=== PATIENT | female | born 1995 ===

== ENCOUNTER 2019-10-27 18:38 | Inpatient (IN) ==
[2019-10-27] MEDS ORDERED: BUTORPHANOL 2 MG/ML VIAL IV PRN (19:22)
[2019-10-27] MEDS ORDERED: ONDANSETRON 4 MG/2 ML VIAL IV PRN (19:22)
[2019-10-27] MEDS ORDERED: MEPERIDINE 50 MG/1 ML VIAL IV PRN (19:22)
[2019-10-27 19:40] LABS: Basophils % 0.2 % (0.0-0.8); Eosinophils % 0.2 % (0.00-10.9); Hematocrit 36.4 VOL% (35.7-47.0); Hemoglobin 12.1 GM/DL (12.0-16.0); Immature Granulocytes % 0.6 %; Immature Granulocytes Absolute 0.05 #; Lymphocytes % 23.9 % (21.3-54.2); Mean Corpuscular HGB Conc 33.2 GM/DL (32-36); Mean Corpuscular Volume 89.9 FL (87-102); Mean Platelet Volume 9.8 FL (9.6-12.0); Neutrophils % 67.1 % (38.7-73.9); Platelet Count 286 T/CUMM (130-400); Red Blood Count 4.05 MC/CUMM (3.8-5.5); Red Cell Distribution Width 15.2 % (9.3-17.3); White Blood Count 8.5 T/CUMM (4-12)
[2019-10-27 19:56] LABS: Bilirubin,Direct < 0.100 MG/DL (0.0-0.20); Uric Acid 5.1 MG/DL (2.6-6.0)
[2019-10-27 19:59] LABS: INR 0.9; PT Patient Result 9.3 SECS (9.8-11.9); Partial Thromboplastin Time 26.8 SECS (23.9-33.8)
[2019-10-27] MEDS ORDERED: AMPICILLIN INJ 2,000 MG in SODIUM CHLORIDE 0.9% 100 ML IV ONE (20:12)
[2019-10-27 20:14] LABS: Alanine Aminotransferase 16 U/L (13-56); Albumin 2.3 G/DL (3.4-5.0); Alkaline Phosphatase 148 U/L (45-117); Aspartate Amino Transferase 19 U/L (0-37); Bilirubin,Total < 0.39 MG/DL (0.2-1.0); Blood Urea Nitrogen 15 MG/DL (7-18); Calcium 8.7 MG/DL (8.5-10.1); Estimated Glom Filtration Rate 103 ML/MIN; Glucose 105 MG/DL (74-106); Osmolality,Calculated 275.7 MOS/KG (273-304); Total Protein 7.1 G/DL (6.4-8.3)
[2019-10-28] MEDS: AMPICILLIN INJ 1,000 MG in SODIUM CHLORIDE 0.9% 100 ML IV SCH ×4 (01:04→15:19)
[2019-10-28] MEDS: LACTATED RINGERS 1,000 ML IV SCH ×4 (02:29→20:34)
[2019-10-28] MEDS ORDERED: OXYTOCIN/LR 20 UNIT/1,000 ML BAG IV SCH (02:30)
[2019-10-28] MEDS ORDERED: CITRIC ACID/SODIUM CITRATE 30 ML UDCUP PO ONE (09:04)
[2019-10-28] MEDS ORDERED: FAMOTIDINE 20 MG/2 ML VIAL IV ONE (09:04)
[2019-10-28] MEDS ORDERED: ePHEDrine 50 MG/ML AMP IV PRN (09:04)
[2019-10-28] MEDS ORDERED: hydrOXYzine HCL 25 MG/1 ML VIAL IM PRN (09:04)
[2019-10-28] MEDS ORDERED: PROMETHAZINE 25 MG/1 ML VIAL IM PRN (09:04)
[2019-10-28] MEDS ORDERED: diphenhydrAMINE 50 MG/1 ML VIAL IV PRN (09:04)
[2019-10-28] MEDS ORDERED: NALOXONE 0.4 MG/ML VIAL IV PRN (09:04)
[2019-10-28] MEDS ORDERED: fentaNYL 2 MCG/ROPIV 0.2% EPID 100 ML EPIDURAL SCH (09:30)
[2019-10-28 12:52] LABS: Apearance,Urine CLEAR (Clear); Bilirubin,Urine Negative (Negative); Blood, Urine Negative (Negative); Glucose,Urine (UA) Negative (Negative); Ketones,Urine Negative (Negative); Mucus,Urine Occasional /LPF (Occasional); Nitrite,Urine Negative (Negative); Protein,Urine 30 MG/DL; RBC,Urine <1 /HPF (0-4); Squamous Epithelial Cell,Urine Occasional /HPF (0-10); Transitional Epi Cells,Urine Occasional /HPF (<1); Urine Specific Gravity 1.023 (1.001-1.035); Urine Urobilinogen < 2.0 EU/DL (0.2-1.0); WBC,Urine 2 /HPF (0-6)
[2019-10-28 13:30] LABS: Urine Color Yellow (Yellow)
[2019-10-28] MEDS ORDERED: miSOPROStoL 200 MCG TABLET ONE (15:45)
[2019-10-28] MEDS ORDERED: OXYTOCIN/LR 20 UNIT/1,000 ML BAG IV ONE ×2 (15:45→19:30)
[2019-10-28] MEDS ORDERED: METHYLERGONOVINE 0.2 MG/1 ML AMP ONE (15:45)
[2019-10-28] MEDS ORDERED: CARBOPROST TROMETHAMINE 250 MCG/ML AMP IM ONE (15:45)
[2019-10-28] MEDS ORDERED: TRANEXAMIC ACID 1,000 MG/10 ML VIAL ONE (15:45)
[2019-10-28] MEDS ORDERED: OXYTOCIN/LR 30 UNIT/1,000 ML BAG IV ONE (18:17)
[2019-10-28] MEDS ORDERED: OXYTOCIN 10 UNIT/ML VIAL IM ONE (18:17)
[2019-10-28] MEDS ORDERED: ceFAZolin 2,000 MG in PREMIX 1 EACH IV ONE (18:19)
[2019-10-28] MEDS ORDERED: ACETAMINOPHEN 325 MG TABLET PO PRN (19:30)
[2019-10-28] MEDS ORDERED: LACTATED RINGERS 1,000 ML IV SCH (19:30)
[2019-10-28] MEDS ORDERED: ONDANSETRON 4 MG/2 ML VIAL IV PRN (19:30)
[2019-10-28] MEDS ORDERED: RHO(D) IMMUNE GLOBULIN 300 MCG SYRINGE IM ONE (19:30)
[2019-10-28] MEDS ORDERED: MIDAZOLAM 2 MG/2 ML VIAL ONE (19:37)
[2019-10-28] MEDS ORDERED: MORPHINE 10 MG/10 ML VIAL ONE (19:37)
[2019-10-28] MEDS ORDERED: KETAMINE 500 MG/10 ML VIAL ONE (19:38)
[2019-10-28] MEDS ORDERED: LIDOCAINE MPF 2% /EPI 20 ML VIAL ONE (19:38)
[2019-10-29] MEDS ORDERED: ceFAZolin 1,000 MG in SYRINGE 1 EACH IV SCH ×2 (02:00→11:30)
[2019-10-29 07:45] LABS: Basophils % 0.2 % (0.0-0.8); Eosinophils % 0.1 % (0.00-10.9); Hematocrit 26.1 VOL% (35.7-47.0); Immature Granulocytes % 0.7 %; Immature Granulocytes Absolute 0.09 #; Lymphocytes % 14.8 % (21.3-54.2); Mean Corpuscular HGB Conc 32.2 GM/DL (32-36); Mean Corpuscular Volume 92.9 FL (87-102); Mean Platelet Volume 9.9 FL (9.6-12.0); Monocytes % 8.6 % (1.7-12.7); Neutrophils % 75.6 % (38.7-73.9)
[2019-10-29 07:55] LABS: Hemoglobin 8.4 GM/DL (12.0-16.0); Platelet Count 227 T/CUMM (130-400); Red Blood Count 2.81 MC/CUMM (3.8-5.5); White Blood Count 13.4 T/CUMM (4-12)
[2019-10-29] MEDS: MULTIVITAMIN (PRENATAL) TABLET PO SCH (09:20)
[2019-10-29] MEDS: METOCLOPRAMIDE 10 MG TABLET PO SCH ×2 (09:20→17:09)
[2019-10-29] MEDS: MAGNESIUM HYDROXIDE SUSP 30 ML UDCUP PO PRN ×2 (09:20→21:02)
[2019-10-29] MEDS: DOCUSATE SODIUM 100 MG CAPSULE PO SCH ×2 (09:20→21:03)
[2019-10-29] MEDS: FERROUS SULFATE 325 MG TABLET PO SCH ×2 (09:20→21:02)
[2019-10-29] MEDS: SIMETHICONE CHEW 80 MG TABLET PO PRN ×2 (09:20→21:11)
[2019-10-29] MEDS: IBUPROFEN 800 MG TABLET PO PRN (16:05)
[2019-10-30] MEDS: METOCLOPRAMIDE 10 MG TABLET PO SCH ×3 (00:22→14:07)
[2019-10-30] MEDS: IBUPROFEN 800 MG TABLET PO PRN (00:22)
[2019-10-30 09:01] VITALS: BP 126/65
[2019-10-30] MEDS: MAGNESIUM HYDROXIDE SUSP 30 ML UDCUP PO PRN (09:30)
[2019-10-30] MEDS: SIMETHICONE CHEW 80 MG TABLET PO PRN (09:30)
[2019-10-30] MEDS: DOCUSATE SODIUM 100 MG CAPSULE PO SCH (09:30)
[2019-10-30] MEDS: FERROUS SULFATE 325 MG TABLET PO SCH (09:30)
[2019-10-30] MEDS: MULTIVITAMIN (PRENATAL) TABLET PO SCH (09:30)
[2019-10-30] MEDS ORDERED: DIPH/TET/ACEL PERT BOOSTER VACCINE 0.5 ML VIAL IM ONE (13:11)
== END 2019-10-30 15:05 | disposition home or self-care (01) | DRG 540 ==
LOC: N.LDOUT 18:38 → N.LD 18:41 → N.OB 10-28 22:49
PROVIDERS: ADMIT Obstetrics & Gynecology; ATTEND Obstetrics & Gynecology
PROC: LDCSECT (ICD-10-PCS; 2019-10-28 18:50)

== ENCOUNTER 2022-06-12 06:32 | Inpatient (IN) ==
[2022-06-12] MEDS ORDERED: TRANEXAMIC ACID 1,000 MG in SODIUM CHLORIDE 0.9% 100 ML IV PRN (06:45)
[2022-06-12] MEDS ORDERED: METHYLERGONOVINE 0.2 MG/1 ML AMP IM PRN (06:45)
[2022-06-12] MEDS ORDERED: miSOPROStoL 200 MCG TABLET RECTAL PRN (06:45)
[2022-06-12] MEDS ORDERED: CITRIC ACID/SODIUM CITRATE 30 ML UDCUP PO ONE (06:45)
[2022-06-12] MEDS ORDERED: OXYTOCIN/LR 20 UNIT/1,000 ML BAG IV ONE ×2 (06:45→11:00)
[2022-06-12] MEDS ORDERED: CARBOPROST TROMETHAMINE 250 MCG/ML AMP IM PRN (06:45)
[2022-06-12 07:19] LABS: Basophils % 0.3 % (0.0-0.8); Eosinophils # 0.1 10*3/uL (0.0-0.87); Hematocrit 36.4 VOL% (35.7-47.0); Hemoglobin 12.3 GM/DL (12.0-16.0); Immature Granulocytes % 0.9 %; Immature Granulocytes Absolute 0.08 #; Lymphocytes # 2.1 10*3/uL (1.4-4.0); Lymphocytes % 23.1 % (21.3-54.2); Mean Corpuscular HGB Conc 33.8 GM/DL (32-36); Mean Corpuscular Volume 91.9 FL (87-102); Mean Platelet Volume 9.3 FL (9.6-12.0); Monocytes # 0.8 10*3/uL (0.11-0.8); Neutrophils % 65.7 % (38.7-73.9); Platelet Count 253 T/CUMM (130-400); Red Blood Count 3.96 MC/CUMM (3.8-5.5); Red Cell Distribution Width 14.7 % (9.3-17.3)
[2022-06-12] MEDS: LACTATED RINGERS 1,000 ML IV SCH ×2 (07:19→09:52)
[2022-06-12] MEDS ORDERED: FAMOTIDINE 20 MG/2 ML VIAL IV ONE (07:30)
[2022-06-12 07:37] LABS: Alanine Aminotransferase 12 U/L (13-56); Albumin 2.5 G/DL (3.4-5.0); Alkaline Phosphatase 133 U/L (45-117); Aspartate Amino Transferase 16 U/L (0-37); Bilirubin,Total < 0.39 MG/DL (0.20-1.00); Blood Urea Nitrogen 12 MG/DL (7-18); Calcium 9.2 MG/DL (8.5-10.1); Carbon Dioxide 22 MMOL/L (21-32); Chloride 109 MMOL/L (98-107); Glucose 106 MG/DL (74-106); Osmolality,Calculated 276.5 MOS/KG (273-304); Potassium 3.8 MMOL/L (3.5-5.1); Sodium 139 MMOL/L (136-145); Total Protein 6.8 G/DL (6.4-8.2)
[2022-06-12] MEDS ORDERED: miSOPROStoL 200 MCG TABLET ONE (07:37)
[2022-06-12] MEDS ORDERED: OXYTOCIN 10 UNIT/ML VIAL IM ONE (07:38)
[2022-06-12] MEDS ORDERED: METHYLERGONOVINE 0.2 MG/1 ML AMP ONE (07:38)
[2022-06-12] MEDS ORDERED: CARBOPROST TROMETHAMINE 250 MCG/ML AMP IM ONE (07:38)
[2022-06-12] MEDS ORDERED: OXYTOCIN/LR 30 UNIT/1,000 ML BAG IV ONE (07:38)
[2022-06-12] MEDS ORDERED: ceFAZolin 2,000 MG/50 ML DUPLEX IV ONE (07:39)
[2022-06-12] MEDS ORDERED: ONDANSETRON 4 MG/2 ML VIAL ONE (08:22)
[2022-06-12] MEDS ORDERED: KETOROLAC 30 MG/1 ML VIAL ONE (08:22)
[2022-06-12] MEDS ORDERED: DEXAMETHASONE 4 MG/1 ML VIAL ONE ×2 (08:22→08:24)
[2022-06-12] MEDS ORDERED: buprenorphine HCL 0.3 MG/ML VIAL ONE (08:22)
[2022-06-12] MEDS ORDERED: ACETAMINOPHEN INJ 1,000 MG/100 ML VIAL IV ONE (08:22)
[2022-06-12] MEDS ORDERED: PHENYLEPHRINE 1 MG/10 ML SYRINGE IV ONE (10:08)
[2022-06-12 10:41] LABS: Cord Arterial Blood HCO3 23.2 MMOL/L
[2022-06-12 10:43] LABS: Cord Venous Blood HCO3 24.1 MMOL/L; Cord Venous Blood PO2 31.8
[2022-06-12 10:50] LABS: Bilirubin,Urine Negative (Negative); Blood, Urine Negative (Negative); Glucose,Urine (UA) Negative (Negative); Ketones,Urine Negative (Negative); Mucus,Urine Occasional /LPF (Occasional); Nitrite,Urine Negative (Negative); Protein,Urine Negative (Negative); RBC,Urine <1 /HPF (0-4); Squamous Epithelial Cell,Urine Occasional /HPF (0-10); Urine Appearance Clear (Clear); Urine Color Yellow (Yellow); Urine Specific Gravity 1.025 (1.001-1.035); Urine Urobilinogen 0.2 eU/dL (<2.0)
[2022-06-12] MEDS ORDERED: MAGNESIUM HYDROXIDE SUSP 30 ML UDCUP PO PRN (11:00)
[2022-06-12] MEDS ORDERED: ACETAMINOPHEN 325 MG TABLET PO PRN (11:00)
[2022-06-12] MEDS ORDERED: ONDANSETRON 4 MG/2 ML VIAL IV PRN (11:00)
[2022-06-12] MEDS ORDERED: LACTATED RINGERS 1,000 ML IV SCH (11:00)
[2022-06-12] MEDS ORDERED: RHO(D) IMMUNE GLOBULIN 300 MCG SYRINGE IM ONE (11:00)
[2022-06-12] MEDS: IBUPROFEN 800 MG TABLET PO PRN (15:45)
[2022-06-12] MEDS ORDERED: KETOROLAC 30 MG/1 ML VIAL IV SCH (16:30)
[2022-06-12] MEDS ORDERED: ACETAMINOPHEN 500 MG TABLET PO SCH (16:30)
[2022-06-12 18:46] LABS: Basophils % 0.1 % (0.0-0.8); Hemoglobin 11.4 GM/DL (12.0-16.0); Immature Granulocytes % 0.7 %; Immature Granulocytes Absolute 0.11 #; Lymphocytes # 1.3 10*3/uL (1.4-4.0); Lymphocytes % 8.5 % (21.3-54.2); Mean Corpuscular HGB Conc 32.6 GM/DL (32-36); Mean Corpuscular Volume 94.1 FL (87-102); Mean Platelet Volume 9.3 FL (9.6-12.0); Monocytes # 0.8 10*3/uL (0.11-0.8); Monocytes % 5.5 % (1.7-12.7); Neutrophils % 85.2 % (38.7-73.9); Platelet Count 256 T/CUMM (130-400); Red Blood Count 3.72 MC/CUMM (3.8-5.5); Red Cell Distribution Width 14.6 % (9.3-17.3); White Blood Count 15.2 T/CUMM (4-12)
[2022-06-12] MEDS: SIMETHICONE CHEW 80 MG TABLET PO PRN (20:54)
[2022-06-12] MEDS: DOCUSATE SODIUM 100 MG CAPSULE PO SCH (20:55)
[2022-06-13 05:07] LABS: Basophils % 0.3 % (0.0-0.8); Eosinophils % 0.3 % (0.00-10.9); Hematocrit 29.5 VOL% (35.7-47.0); Hemoglobin 10.1 GM/DL (12.0-16.0); Immature Granulocytes % 0.9 %; Immature Granulocytes Absolute 0.11 #; Lymphocytes # 2.4 10*3/uL (1.4-4.0); Lymphocytes % 19.7 % (21.3-54.2); Mean Corpuscular HGB Conc 34.2 GM/DL (32-36); Mean Corpuscular Volume 92.5 FL (87-102); Mean Platelet Volume 9.8 FL (9.6-12.0); Monocytes # 1.3 10*3/uL (0.11-0.8); Neutrophils % 67.8 % (38.7-73.9); Platelet Count 236 T/CUMM (130-400); Red Blood Count 3.19 MC/CUMM (3.8-5.5); Red Cell Distribution Width 14.9 % (9.3-17.3); White Blood Count 11.9 T/CUMM (4-12)
[2022-06-13] MEDS: IBUPROFEN 800 MG TABLET PO PRN ×3 (06:09→23:30)
[2022-06-13] MEDS: MULTIVITAMIN (PRENATAL) TABLET PO SCH (09:54)
[2022-06-13] MEDS: DOCUSATE SODIUM 100 MG CAPSULE PO SCH ×2 (09:54→21:30)
[2022-06-13] MEDS: METOCLOPRAMIDE 10 MG TABLET PO SCH ×2 (15:24→23:29)
[2022-06-13] MEDS: SIMETHICONE CHEW 80 MG TABLET PO PRN (21:30)
[2022-06-14 07:38] VITALS: BP 122/83
[2022-06-14] MEDS: METOCLOPRAMIDE 10 MG TABLET PO SCH (08:03)
[2022-06-14] MEDS: MULTIVITAMIN (PRENATAL) TABLET PO SCH (08:03)
[2022-06-14] MEDS: DOCUSATE SODIUM 100 MG CAPSULE PO SCH (08:03)
[2022-06-14] MEDS: IBUPROFEN 800 MG TABLET PO PRN (10:55)
== END 2022-06-14 13:25 | disposition home or self-care (01) | DRG 540 ==
LOC: N.LD 06:32 → N.OB 14:07
PROVIDERS: ADMIT Obstetrics & Gynecology; ATTEND Obstetrics & Gynecology
PROC: LDCSECT (ICD-10-PCS; 2022-06-12 10:00)